=== PATIENT | male | born 1960 | race African-American/Black ===

== ENCOUNTER 2017-05-31 19:42 | Inpatient (IN) | payer OTHER ==
[2017-05-31 20:09] LABS: #Basophils 0.1 thou/uL (0.0-0.2); #Eosinphils 0.5 thou/uL (0.0-0.7); #Lymphocytes 2.8 thou/uL (1.20-3.40); #Monocytes 0.6 thou/uL (0.11-0.59); #Neutrophils 5.7 thou/uL (1.40-6.50); %Basophils 0.9 % (0.0-1.0); %Eosinophils 4.8 % (0.0-10.0); %Lymphocytes 29.1 % (21.0-51.0); Hematocrit 45.7 % (42.0-52.0); Mean Platelet Volume 7.9 fL (7.4-10.4); Red Blood Cell (RBC) Count 5.43 mill/uL (4.70-6.10); White Blood Cell (WBC) Count 9.6 thou/uL (4.8-10.8)
[2017-05-31 20:16] LABS: Prothrombin Time 12.3 SEC (12.0-14.7)
[2017-05-31 20:32] LABS: Anion Gap 13 mmol/L (10-20); BUN (Urea Nitrogen) 23 mg/dL (8.4-25.7); CK (CPK) 321 U/L (30-200); Calc. Creatinine Clearance 0 mL/min (70-130); Calcium 9.5 mg/dL (7.8-10.44); Carbon Dioxide 28 mmol/L (22-29); Chloride 103 mmol/L (98-107); Estimated GFR-MDRD 75
[2017-05-31 20:35] LABS: Troponin I Less than 0.010 ng/mL (< 0.028)
--- NOTE | 2017-05-31 21:06 | CT ---
CT HEAD NONCONTRAST 05/31/17 HISTORY: Altered mental status. Prior intracranial hemorrhage. COMPARISON: 04/21/16. FINDINGS: No centered within the right basal ganglia is an oval fairly well circumscribed 1.2 cm hyperdense foc us. A tiny hyperdense focus is noted just to the right of midline at the level of the gini. The hemat kimo at the left occipital level on the previous exam has resolved. Prominent chronic ischemic small v essel disease is again demonstrated throughout each cerebral hemisphere. There is mucosal thickening within the paranasal sinuses. IMPRESSION: New dominant focus of intra-axial hematoma at the right basal ganglia, measuring up to 1.2 cm greates t diameter. A tiny hemorrhagic focus is also suspected within the right side of the gini. Findings were called to Dr. Montiel in the Emergency Department at 2051 hours. Code CR POS: [facility]
[2017-05-31] MEDS ORDERED: niCARdipine 20MG In NaCl 20 MG/200 ML BAG ONE (21:27)
[2017-05-31] MEDS ORDERED: Docusate 100 MG CAP PO PRN (22:29)
[2017-05-31] MEDS ORDERED: Ondansetron HCl/PF 4 MG/2 ML Vial IVP PRN (22:29)
[2017-05-31] MEDS ORDERED: Acetaminophen 325 MG TAB PO PRN (22:29)
[2017-05-31] MEDS ORDERED: Mag-Al 1200 mg/1200 mg/30 ML UDCUP PO PRN (22:29)
[2017-05-31] MEDS ORDERED: Bisacodyl 10 MG SUPP PR PRN (22:29)
[2017-05-31] MEDS ORDERED: niCARdipine 20MG in NaCl 200 ML BAG IVPB PRN (22:29)
[2017-05-31] MEDS: Sodium Chloride 0.9% 1,000 ML IV SCH (23:45)
[2017-06-01 00:40] VITALS: BMI 31.6
[2017-06-01] MEDS: niCARdipine HCl 25 MG in Sodium Chloride 0.9% 250 ML 240 ML IVPB PRN ×3 (01:23→15:11)
[2017-06-01 04:09] LABS: #Basophils 0.1 thou/uL (0.0-0.2); #Eosinphils 0.4 thou/uL (0.0-0.7); #Lymphocytes 2.1 thou/uL (1.20-3.40); #Monocytes 0.6 thou/uL (0.11-0.59); #Neutrophils 4.8 thou/uL (1.40-6.50); %Eosinophils 5.6 % (0.0-10.0); %Lymphocytes 26.3 % (21.0-51.0); %Monocytes 7.1 % (0.0-10.0); Hematocrit 43.7 % (42.0-52.0); Mean Platelet Volume 7.6 fL (7.4-10.4)
[2017-06-01 04:20] LABS: Anion Gap 10 mmol/L (10-20); BUN (Urea Nitrogen) 15 mg/dL (8.4-25.7); Calc. Creatinine Clearance 99 mL/min (70-130); Calcium 8.9 mg/dL (7.8-10.44); Carbon Dioxide 29 mmol/L (22-29); Chloride 103 mmol/L (98-107); Estimated GFR-MDRD Greater than 90
[2017-06-01] MEDS ORDERED: Potassium Phosphate 15 MMOL in Sodium Chloride 0.9% 250 ML 250 ML IV PRN (04:54)
[2017-06-01] MEDS ORDERED: Magnesium 2 GM/NS 0.9% 100 ML 2 GM in Premix Bag 1 BAG IVPB PRN (04:54)
[2017-06-01] MEDS ORDERED: Potassium Chloride 40 MEQ in Premix Bag 1 BAG IVPB PRN (04:54)
[2017-06-01] MEDS ORDERED: Potassium Phosphate 12 MMOL in Sodium Chloride 0.9% 250 ML 250 ML IV PRN (04:54)
[2017-06-01] MEDS ORDERED: Potassium Chloride 20 MEQ TAB PO PRN (04:54)
[2017-06-01] MEDS ORDERED: CCU ELECTROLYTE REPLACEMENT PROTOCOL FS PRN (04:54)
[2017-06-01] MEDS ORDERED: Potassium Chloride 40 MEQ in Sodium Chloride 0.9% 250 ML 250 ML IVPB PRN (04:54)
[2017-06-01] MEDS ORDERED: Potassium Phosphate 9 MMOL in Sodium Chloride 0.9% 100 ML IVPB PRN (04:54)
[2017-06-01] MEDS ORDERED: Magnesium Oxide 400 MG TAB PO PRN ×2 (04:54)
--- NOTE | 2017-06-01 05:44 | HP ---
Noel Rodriguez PA-C, dictating for Ron Perez MD This is a 55-minute initial patient consult in which greater than 50% of the exam was spent in counseling and coordinating patient's care. The remainder of the exam was spent in review of patient's medical records and appropriate imaging studies. CHIEF COMPLAINT: Slurred speech for the past 3 hours. HISTORY OF PRESENT ILLNESS: Mr. Singer is a pleasant 57-year-old male who presented to [facility] with his girlfriend with the above complaints. Apparently, the patient's girlfriend was visiting [place] and was speaking to the patient on the phone roughly at 5:00 p.m. When she got home around 8:00 p.m., she noticed that the patient was slurring his speech and this became progressively worse over the course of roughly an hour and he did have one episode of drooling. The patient has known hypertension that is intermittently controlled. He is also on 81 mg of aspirin, but does not have a history of CVA. The patient currently denies headache, blurred vision, nausea, vomiting, or falls. He does note some decreased function of the left upper extremity and slurred speech. He does have a history of amyloid angiography. Due to the slurred speech, a CT scan was obtained in the ER and review of this shows right basal ganglia hemorrhage with pontine hemorrhage. PHYSICAL EXAMINATION: The patient is awake, alert, and appropriate. He does have some garbled speech and talks as though he has marbles in his mouth. He is slightly slurring his words, but answers all our questions appropriately. GCS is currently 15. He is able to follow commands in all 4 extremities. He has full strength in the right upper extremity and bilateral lower extremities, but does have some mild weakness in the entire left upper extremity. He is also slower to move this. There does appear to be a slight component of left pronator drift though this is subtle. His pupils are equal, round, and reactive bilaterally. He is able to appropriately identify a writing pen and identify its purpose but he does have difficulty defining the definition of an island. He also has difficulty with index [id number] touch on the left. IMPRESSION: 1. Right basal ganglia and pontine hemorrhage. 2. History of hypertension, poorly controlled. 3. Amyloid angiography. PLAN: I have discussed the patient's case with Dr. Perez, reviewed the imaging. At this time, we will admit the patient to the CCU for close monitoring. He will have q. 1 hour neuro checks. He will be n.p.o. We also consult our medical colleagues to help with our patient's medical issue. His systolic blood pressure should remain less than 150. We will elevate his head of bed to 30 and keep him on bed rest. We will repeat his head CT in the morning. It is highly unlikely that the patient will require any type of neurosurgical intervention and we will be able to monitor this hemorrhage. I discussed this in detail with the patient and his girlfriend at bedside and they are agreeable to this. We will follow upon the patient's head CT in the morning, but please do not hesitate to contact us with any changes or questions in patient's neurologic exam. DARIO
[2017-06-01] MEDS ORDERED: CCU Electrolyte Replacement 1 EACH FS ONE (07:26)
--- NOTE | 2017-06-01 08:03 | CT ---
PRELIMINARY REPORT/[facility]/EMERGENCY AFTER HOURS PROCEDURE: EXAM: CT Head Without Intravenous Contrast CLINICAL HISTORY: 57 years old, male; Condition or disease; Other: Intracerebral hemorrhage; Patient HX: Intracerebral hemorrhage, f/u TECHNIQUE: Axial computed tomography images of the head/brain without intravenous contrast. COMPARISON: CT Brain WO Con 2017-05-31 20:46 FINDINGS: Brain: Mild moderate periventricular and deep white matter hypodensities compatible with chronic microvascular ischemic change. Approximately 1 cm hyperdensity in the upper right basal gangliacorona radiata, unchanged. No new hemorrhage. Ventricles: Normal. Bones/joints: Unremarkable. No acute fracture. Soft tissues: Normal. Sinuses: Minimal paranasal sinus mucosal thickening, more prominent in the right maxillary sinus. Mastoid air cells: Unremarkable. No mastoid effusion. IMPRESSION: Unchanged parenchymal hematoma. Thank you for allowing us to participate in the care of your patient. Dictated and Authenticated by: Stone Hernadez MD 06/01/2017 4:36 AM Central Time ([place] & [place]) FINAL REPORT HEAD CT WITHOUT CONTRAST: DATE: 06/01/17. COMPARISON: 05/31/17 and 04/20/16. HISTORY: Reevaluate intracranial hemorrhage. FINDINGS: I agree with the preliminary [facility] report. There is a stable intraaxial hemorrhage within the putame n on the right measuring approximately 1 cm. There is mild surrounding edema, unchanged. There is a punctate hyperdensity in the gini, unchanged since 2016, likely on the basis of a small ca lcification. Periventricular hypodensity is again noted suggesting small-vessel disease. No midline shift or mass effect. No new hemorrhage. There is mucosal thickening of the right maxillary sinus. IMPRESSION: Stable intracranial hemorrhage as detailed above. POS: [facility]
[2017-06-01] MEDS ORDERED: Amlodipine 5 mg/Benazepril 10 mg CAP PO SCH (10:30)
[2017-06-01] MEDS ORDERED: Hydrochlorothiazide 25 MG TAB PO SCH (10:30)
--- NOTE | 2017-06-01 13:28 | PRG ---
DATE OF SERVICE: 06/01/2017 This is a 30 minute initial hospital visit note in which 30 minutes were spent in review of the imagi ng, record, evaluation and examination of the patient. Greater than 50% of time was spent in corporate counsel ing on Deric Singer. CHIEF COMPLAINT: Right basal ganglia and pontine hemorrhage with a history of amyloid angiopathy. HISTORY OF PRESENT ILLNESS: I reviewed the notes of my colleague Noel Rodriguez PA-C, and agree wit h its content. Mr. Singer is a 57-year-old man known to me. I saw him last year for left occipital h emorrhage. MRI demonstrated findings consistent with amyloid angiopathy. He has at times had uncont rolled hypertension and as such, he presented yesterday to the ER with left-sided upper extremity wea kness and was found to have a right basal ganglia hemorrhage and a pontine hemorrhage with a blood pr essure of 180/90. This morning on exam, he is alert, appropriate. He has mild weakness in the left upper extremity, but otherwise follows commands. IMPRESSION AND PLAN: I let the patient know that there is no role for neurosurgical intervention. R epeat head CT has been stable. We will transfer to our medical colleagues and arrange for a followup head CT in our clinic in 1 month. I have emphasized to the patient and the importance of tight bloo d pressure control would recommend systolic blood pressure control below 150.
[2017-06-01] MEDS: Sodium Chloride 0.9% 1,000 ML IV SCH (15:11)
--- NOTE | 2017-06-01 15:48 | PDOC.PN ---
- Subjective Encounter Start Date: 06/01/17 Encounter Start Time: 09:40 Pt seen for management of medical comorbidities, including hypertension. Denies chest pain, shortness of breath, fevers or chills. - Objective MAR Reviewed: Yes Vital Signs & Weight: Vital Signs (12 hours) Temp Pulse Pulse Pulse Resp BP BP 06/01/17 12:00 98.3 F 06/01/17 10:20 60 58 L 131/86 139/87 06/01/17 07:18 98.0 F 67 23 H 06/01/17 07:00 98.0 F 06/01/17 04:00 98.5 F Pulse Ox Pulse Ox Pulse Ox 06/01/17 12:00 06/01/17 10:20 100 97 06/01/17 07:18 97 06/01/17 07:00 06/01/17 04:00 Weight Weight 190 lb 0.615 oz Most Recent Monitor Data Heart Rate from ECG 62 NIBP 147/84 NIBP BP-Mean 109 Respiration from ECG 15 SpO2 97 I&O: 05/31/17 06/01/17 06/02/17 06:59 06:59 06:59 Intake Total 661 1090 Output Total 875 760 Balance -214 330 Result Diagrams: 06/01/17 03:53 06/01/17 12:23 EKG Reviewed by me: Yes (Tele: NSR) Phys Exam - Physical Examination Obese HEENT: moist MMs, sclera anicteric Neck: supple Respiratory: clear to auscultation bilateral Cardiovascular: RRR Gastrointestinal: soft, non-tender, positive bowel sounds Neurological: non-focal, moves all 4 limbs Psychiatric: normal affect Skin: no rash Dx/Plan (1) HTN (hypertension) Code(s): I10 - ESSENTIAL (PRIMARY) HYPERTENSION Status: Chronic (2) Dyslipidemia Code(s): E78.5 - HYPERLIPIDEMIA, UNSPECIFIED Status: Chronic (3) Intracranial hemorrhage Code(s): I62.9 - NONTRAUMATIC INTRACRANIAL HEMORRHAGE, UNSPECIFIED Status: Acute - Plan PT/OT, out of bed/ambulate, DVT proph w/SCDs * . Resume home antihypertensives. Monitor vital signs and titrate antihypertensives. Continue Cardene drip PRN. Resume statin. Neurosurgery following re: intracranial bleed. Review of Systems - Review of Systems Respiratory: negative: Cough, Dry, Shortness of Breath, Hemoptysis, SOB with Excertion, Pleuritic Pain, Sputum, Wheezing Cardiovascular: negative: Chest Pain, Palpitations, Orthopnea, Paroxysmal Noc. Dyspnea, Edema, Light Headedness Neurological: negative: Weakness, Numbness, Incoordination, Change in Speech, Confusion, Seizures - Medications/Allergies Allergies/Adverse Reactions: Allergies Allergy/AdvReac Type Severity Reaction Status Date / Time No Known Allergies Allergy Verified 04/20/16 23:20 Medications: Current Medications Acetaminophen (Tylenol) 650 mg PO Q6H PRN PRN Reason: Fever > 101 or Headache Al Hydroxide/Mg Hydroxide (Maalox) 30 ml PO QIDPRN PRN PRN Reason: Dyspepsia Amlodipine/Benazepril HCl (Lotrel 5/10) 1 cap PO DAILY [facility] Bisacodyl (Dulcolax) 10 mg [place] DAILYPRN PRN PRN Reason: Constipation Docusate Sodium (Colace) 100 mg PO BIDPRN PRN PRN Reason: Constipation Hydrochlorothiazide (Hydrochlorothiazide) 25 mg PO DAILY [facility] Sodium Chloride (Normal Saline 0.9%) 1,000 mls @ 80 mls/hr IV .[id number] [facility] Last Admin: 06/01/17 15:11 Dose: 1,000 mls Nicardipine HCl 25 mg/ Sodium (Chloride) 250 mls @ 0 mls/hr IVPB INF PRN; Protocol; Titrate PRN Reason: For SBP > 150 or DBP > 90 Last Admin: 06/01/17 15:11 Dose: 250 mls Potassium Chloride 40 meq/ (Sodium Chloride) 270 mls @ 135 mls/hr IVPB ASDIR PRN PRN Reason: FOR SERUM K+ 2.5 - 3.5 Last Admin: 06/01/17 05:14 Dose: 270 mls Potassium Chloride 40 meq/ (Device) 100 mls @ 50 mls/hr IVPB ASDIR PRN PRN Reason: FOR SERUM K+ 2.5 - 3.5 Magnesium Sulfate 1 gm/ Sodium (Chloride) 102 mls @ 102 mls/hr IV PRN PRN PRN Reason: MAG LEVEL 1.4 - 2.0 Magnesium Sulfate 2 gm/ Device 100 mls @ 100 mls/hr IVPB ASDIR PRN PRN Reason: MAGNESIUM < 1.4 Potassium Phosphate 9 mmol/ (Sodium Chloride) 103 mls @ 25.75 mls/hr IVPB ASDIR PRN PRN Reason: Phosphate 1.0-1.8 Potassium Phosphate 12 mmol/ (Sodium Chloride) 254 mls @ 63.5 mls/hr IV ASDIR PRN PRN Reason: Serum phosphate 0.5-0.9 Potassium Phosphate 15 mmol/ (Sodium Chloride) 255 mls @ 63.75 mls/hr IV ASDIR PRN PRN Reason: Serum Phos < 0.5 Influenza Virus Vaccine (Fluzone Quad [id number] Syringe) 0.5 ml IM .ONCE ONE Stop: 06/03/17 09:01 Magnesium Oxide (Magnesium Oxide) 400 mg PO BIDPRN PRN PRN Reason: FOR SERUM MAG 1.4 - 2.0 Magnesium Oxide (Magnesium Oxide) 800 mg PO PRN PRN PRN Reason: FOR SERUM MAG < 1.4 Metoprolol Tartrate (Lopressor) 25 mg PO BID [facility] Miscellaneous Medication (Phos-Nak) 1 pkt PO TIDPRN PRN PRN Reason: FOR PHOS LEVEL 1.0 - 1.8 Miscellaneous Medication (Phos-Nak) 2 pkt PO TIDPRN PRN PRN Reason: FOR PHOS LEVEL 0.5 - 1.0 Ondansetron HCl (Zofran) 4 mg IVP BIDPRN PRN PRN Reason: Nausea/Vomiting Potassium Chloride (K-Dur) 40 meq PO ASDIR PRN PRN Reason: FOR SERUM K+ 2.5 - 3.5 Potassium Chloride (Klor-Con) 40 meq PER TUBE ASDIR PRN PRN Reason: FOR SERUM K+ 2.5-3.5 Last Admin: 06/01/17 13:08 Dose: 40 meq Sodium Chloride (Flush - Normal Saline) 10 ml IVF PRN PRN PRN Reason: Saline Flush
[2017-06-01] MEDS: hydrALAZINE 20 MG/ML VIAL SLOW IVP PRN ×2 (17:05→19:16)
--- NOTE | 2017-06-01 18:35 | CON ---
DATE OF SERVICE: 06/01/2017 SERVICE: Pulmonary Medicine. REASON FOR CONSULTATION: ICU patient. HISTORY OF PRESENT ILLNESS: The patient is a 57-year-old -[place] male with past medical his tory significant for hypertension. He presented to the hospital after he was in his usual state of h ealth and had an abrupt onset of neurologic changes including left arm weakness, lack of coordination , and inability to get his words out. He could understand everything that people were saying. On pr esentation to the Emergency Department, he had a CT of the brain, demonstrated acute hemorrhagic blee d of the right thalamic region. Otherwise, he was in his usual state of health. He currently denies any fevers, chills, nausea, vomiting or chest discomfort. PAST MEDICAL HISTORY: 1. Hypertension. 2. Dyslipidemia. 3. History of intracranial hemorrhage secondary to elevated blood pressures in the left parietal-occ ipital region. PAST SURGICAL HISTORY: None. SOCIAL HISTORY: He drinks alcohol socially, but denies any alcohol or illicit drugs. He has no expo sure to chemicals, dust, asbestos or tuberculosis. FAMILY HISTORY: Noncontributory. ALLERGIES: No known drug allergies. MEDICATIONS: List of inpatient medications was reviewed. A couple of small updates were made. REVIEW OF SYSTEMS: General, head, ears, eyes, nose, throat, cardiovascular, respiratory, GI, , mus culoskeletal, neurologic and skin is negative except as mentioned in the HPI. PHYSICAL EXAMINATION: VITAL SIGNS: Afebrile, pulse 62, blood pressure 147/84, respirations 18, saturation 100% on room air . GENERAL: The patient is awake and alert, in no apparent distress. LUNGS: Excellent air entry. There is no prolonged expiratory phase, wheezing, rhonchi or crackles. HEART: Normal rate and regular. ABDOMEN: Soft, nontender, nondistended, bowel sounds positive. MUSCULOSKELETAL: No cyanosis or clubbing. No pitting in the bilateral lower extremities. NEUROLOGIC: He demonstrates left upper extremity weakness. LABORATORY DATA: WBC and rest of CBC is unremarkable. INR 0.9. Potassium 2.9, which has improved t o 3.2. Basic metabolic profile is otherwise unremarkable. Cardiac enzymes negative x1. IMAGING: CT of the brain from this morning demonstrates unchanged parenchymal hematoma in the right basal ganglia region. ASSESSMENT: 1. Intraparenchymal hemorrhage of the right thalamic region. 2. Hypertensive emergency. PLAN: We will get physical therapy and occupational therapy involved. If the patient remains hemody namically stable over the next 24 hours, he can be transitioned to the stroke unit. Pulmonary Critic al Care will continue to follow while he remains in this location.
[2017-06-01] MEDS: Pravastatin Sodium 40 MG TAB PO SCH (20:30)
[2017-06-01] MEDS: Amlodipine 5 mg/Benazepril 10 mg CAP PO SCH (20:30)
[2017-06-01] MEDS: Metoprolol Tartrate 25 MG TAB PO SCH (20:30)
[2017-06-02] MEDS: Sodium Chloride 0.9% 1,000 ML IV SCH ×2 (00:43→01:21)
[2017-06-02 04:18] LABS: #Basophils 0.1 thou/uL (0.0-0.2); #Eosinphils 0.5 thou/uL (0.0-0.7); #Lymphocytes 1.9 thou/uL (1.20-3.40); #Monocytes 0.5 thou/uL (0.11-0.59); %Basophils 0.9 % (0.0-1.0); %Eosinophils 5.1 % (0.0-10.0); %Lymphocytes 21.3 % (21.0-51.0); %Monocytes 5.4 % (0.0-10.0); Hematocrit 45.1 % (42.0-52.0); Red Blood Cell (RBC) Count 5.35 mill/uL (4.70-6.10); White Blood Cell (WBC) Count 8.9 thou/uL (4.8-10.8)
[2017-06-02 04:30] LABS: Anion Gap 8 mmol/L (10-20); BUN (Urea Nitrogen) 12 mg/dL (8.4-25.7); Calc. Creatinine Clearance 106 mL/min (70-130); Carbon Dioxide 26 mmol/L (22-29); Chloride 105 mmol/L (98-107); Estimated GFR-MDRD Greater than 90
[2017-06-02] MEDS: hydrALAZINE 20 MG/ML VIAL SLOW IVP PRN ×2 (05:03→18:25)
[2017-06-02] MEDS: Hydrochlorothiazide 25 MG TAB PO SCH (08:15)
[2017-06-02] MEDS: Metoprolol Tartrate 25 MG TAB PO SCH ×2 (08:15→21:13)
[2017-06-02] MEDS: Amlodipine 5 mg/Benazepril 10 mg CAP PO SCH ×2 (08:15→21:13)
[2017-06-02] MEDS ORDERED: Potassium Chloride 20 MEQ TAB PO SCH (08:30)
[2017-06-02 08:37] LABS: Phosphorus 2.4 mg/dL (2.3-4.7)
--- NOTE | 2017-06-02 08:43 | PRG ---
DATE OF SERVICE: 06/02/2017 SERVICE: Pulmonary Medicine INTERVAL HISTORY: The patient weaned off of blood pressure medication yesterday. He is tolerating p .o. We have excellent control of his blood pressures. He is getting up into a chair and tolerating p.o. At this point, he has no further requirements to be monitored in the ICU. There were no events overnight. PHYSICAL EXAMINATION: VITAL SIGNS: Afebrile, pulse 60, blood pressure 125/73, respirations 17, saturation 97% on room air. GENERAL: The patient is awake, alert, in no apparent distress. LUNGS: Decent air entry. There is no prolonged expiratory phase, wheezing, rhonchi or crackles. HEART: Normal rate, regular. ABDOMEN: Soft, nontender, nondistended. Bowel sounds positive. MUSCULOSKELETAL: No cyanosis or clubbing. No pitting in the bilateral lower extremities. NEUROLOGIC: The patient has a left hand weakness. He has got a little difficulty with getting words out. Outside of that, he has no focal neurologic deficits. LABORATORY: CBC is completely unremarkable. Basic metabolic profile is only significant for potassi um of 3.3. ASSESSMENT: 1. Intraparenchymal hemorrhage of the right thalamic area. 2. Hypertensive emergency, resolved. 3. Hyperkalemia. PLAN: I will replace the patient's potassium. At this point, he is off of the drips. We will zeb nue his p.o. blood pressure medication and other supportive measures. He is going to work hard with physical therapy, occupational therapy, and Speech Pathology in order to regain loss strength. At th is point, there are no further requirements for ICU monitoring. We will transition him to the stroke unit if he remains stable there, Pulmonary will sign off. Please call with additional questions or concerns.
[2017-06-02] MEDS ORDERED: Amlodipine 5 mg/Benazepril 10 mg CAP PO SCH (09:00)
[2017-06-02] MEDS ORDERED: DC Electrolyte Protocol FS ONE (10:04)
--- NOTE | 2017-06-02 16:59 | PDOC.PN ---
- Subjective Encounter Start Date: 06/02/17 Encounter Start Time: 10:00 Patient seen and examined. No new complaints. No overnight events. Doing well. No headache. Speech slowly improving. No new focal deficits. - Objective MAR Reviewed: Yes Vital Signs & Weight: Vital Signs (12 hours) Temp Pulse Pulse Pulse Resp BP BP 06/02/17 16:45 98.5 F 06/02/17 15:54 98.6 F 06/02/17 12:00 98.6 F 06/02/17 11:00 98.4 F 06/02/17 09:25 62 59 L 125/83 132/86 06/02/17 07:44 98.5 F 60 17 06/02/17 07:00 98.6 F 06/02/17 05:03 70 Pulse Ox 06/02/17 16:45 06/02/17 15:54 06/02/17 12:00 06/02/17 11:00 06/02/17 09:25 06/02/17 07:44 97 06/02/17 07:00 06/02/17 05:03 Weight Weight 188 lb 14.978 oz Most Recent Monitor Data Heart Rate from ECG 68 NIBP 132/70 NIBP BP-Mean 103 Respiration from ECG 20 SpO2 96 I&O: 06/01/17 06/02/17 06/03/17 06:59 06:59 06:59 Intake Total 661 2738 1615 Output Total 875 2625 1340 Balance -214 113 275 Result Diagrams: 06/02/17 03:48 06/03/17 04:27 EKG Reviewed by me: Yes (Tele SR) Phys Exam - Physical Examination Constitutional: NAD Respiratory: no wheezing, no rhonchi Cardiovascular: RRR, no rub Gastrointestinal: soft, non-tender, positive bowel sounds Musculoskeletal: no edema Neurological: moves all 4 limbs no new focal deficits. Psychiatric: normal affect, A&O x 3 Dx/Plan - Plan DVT proph w/SCDs IMPRESSION: 1. Intracranial hemorrhage due to amyloid angiopathy 2. HTN - not at goal - noncompliant with meds at home 3. Obesity BMI 32.6 4. Hyperlipidemia PLAN: * Cont current HTN meds as below * Lotrel dose increased * Will consider changing Metoprolol to Coreg in AM if BP not at goal * Will cont Statins due to insufficient data to hold Statins during ICH from Amyloid angiopathy * Counselled on med compliance * Family at bedside. * All questions answered - Pt stated understanding with the current plan of care Review of Systems - Review of Systems Respiratory: negative: Cough, Dry, Shortness of Breath, Hemoptysis, SOB with Excertion, Pleuritic Pain, Sputum, Wheezing Cardiovascular: negative: Chest Pain, Palpitations, Orthopnea, Paroxysmal Noc. Dyspnea, Edema, Light Headedness, Other Gastrointestinal: negative: Nausea, Vomiting, Abdominal Pain, Diarrhea, Constipation, Melena, Hematochezia, Other - Medications/Allergies Allergies/Adverse Reactions: Allergies Allergy/AdvReac Type Severity Reaction Status Date / Time No Known Allergies Allergy Verified 04/20/16 23:20 Medications: Current Medications Acetaminophen (Tylenol) 650 mg PO Q6H PRN PRN Reason: Fever > 101 or Headache Al Hydroxide/Mg Hydroxide (Maalox) 30 ml PO QIDPRN PRN PRN Reason: Dyspepsia Amlodipine/Benazepril HCl (Lotrel 5/10) 1 cap PO BID [facility] Last Admin: 06/02/17 08:15 Dose: 1 cap Bisacodyl (Dulcolax) 10 mg [place] DAILYPRN PRN PRN Reason: Constipation Docusate Sodium (Colace) 100 mg PO BIDPRN PRN PRN Reason: Constipation Hydralazine HCl (Apresoline) 20 mg SLOW IVP Q1H PRN PRN Reason: sbp > 140 Last Admin: 06/02/17 05:03 Dose: 20 mg Hydrochlorothiazide (Hydrochlorothiazide) 25 mg PO DAILY [facility] Last Admin: 06/02/17 08:15 Dose: 25 mg Influenza Virus Vaccine (Fluzone Quad [id number] Syringe) 0.5 ml IM .ONCE ONE Stop: 06/03/17 09:01 Metoprolol Tartrate (Lopressor) 25 mg PO BID [facility] Last Admin: 06/02/17 08:15 Dose: 25 mg Ondansetron HCl (Zofran) 4 mg IVP BIDPRN PRN PRN Reason: Nausea/Vomiting Pravastatin Sodium (Pravachol) 40 mg PO HS [facility] Last Admin: 06/01/17 20:30 Dose: 40 mg Sodium Chloride (Flush - Normal Saline) 10 ml IVF PRN PRN PRN Reason: Saline Flush
--- NOTE | 2017-06-02 19:09 | PRG ---
DATE OF SERVICE: 05/31/2017 This is a 15 minutes subsequent visit note in which 15 minutes were spent in review of the imaging re cord evaluation, examination of the patient, and formulation of the plan. Greater than 50% of the ti me was spent in counseling on Deric Singer. Mr. Singer is neurologically stable. He is in the ICU. PHYSICAL EXAMINATION: On exam, he is alert, appropriate. He moves all extremities to command with m ild left upper extremity weakness. Again, he has a small right basal ganglia hemorrhage and a small mid-pontine hemorrhage related to amyloid angiopathy. This was known and I saw him a year ago for th e same condition. He has poorly-controlled hypertension and I have again reiterated the importance o f him maintaining this control. At this point, he will be transferred to the floor. I will sign off his case but arrange for followup in my clinic in 1 month. I would recommend systolic blood pressur e be kept ideally below 150. I will turn over his care to our medical team. DIAGNOSES: 1. Amyloid angiopathy. 2. Hypertension.
[2017-06-02] MEDS: Pravastatin Sodium 40 MG TAB PO SCH (21:13)
[2017-06-03 05:54] LABS: Anion Gap 13 mmol/L (10-20); BUN (Urea Nitrogen) 14 mg/dL (8.4-25.7); BUN/Creatinine Ratio 14.74; Calc. Creatinine Clearance 105 mL/min (70-130); Calcium 9.4 mg/dL (7.8-10.44); Carbon Dioxide 25 mmol/L (22-29); Chloride 104 mmol/L (98-107); Estimated GFR-MDRD Greater than 90; Phosphorus 2.9 mg/dL (2.3-4.7)
[2017-06-03] MEDS ORDERED: cloNIDine 0.1 MG TAB PO PRN (06:47)
[2017-06-03] MEDS: Amlodipine 5 mg/Benazepril 10 mg CAP PO SCH ×2 (08:50→20:14)
[2017-06-03] MEDS: Carvedilol 6.25 MG TAB PO SCH ×2 (08:50→15:45)
[2017-06-03] MEDS: Hydrochlorothiazide 25 MG TAB PO SCH (08:51)
[2017-06-03] MEDS ORDERED: FLU VACC QS2017-18 36 mo. & older 0.5 ML SYRINGE IM ONE (09:00)
--- NOTE | 2017-06-03 19:05 | PDOC.PN ---
- Subjective Encounter Start Date: 06/03/17 Encounter Start Time: 08:15 Patient seen and examined. No new complaints. No overnight events. No new focal deficits. Feels better. BP not at goal - Objective MAR Reviewed: Yes Vital Signs & Weight: Vital Signs (12 hours) Temp Pulse Resp BP BP Pulse Ox 06/03/17 15:45 138/86 06/03/17 15:10 98.7 F 67 20 134/84 97 06/03/17 11:35 97.2 F L 60 18 137/78 97 06/03/17 08:50 138/86 06/03/17 07:40 98.7 F 61 20 97 06/03/17 07:37 98.7 F 61 20 138/86 97 Weight Weight 195 lb 11.2 oz Most Recent Monitor Data Heart Rate from ECG 68 NIBP 132/70 NIBP BP-Mean 103 Respiration from ECG 20 SpO2 96 I&O: 06/02/17 06/03/17 06/04/17 06:59 06:59 06:59 Intake Total 2738 1855 1100 Output Total 2625 1340 Balance 994 571 8656 Result Diagrams: 06/02/17 03:48 06/03/17 04:27 EKG Reviewed by me: Yes (Tele SR) Phys Exam - Physical Examination Constitutional: NAD Respiratory: no wheezing, no rhonchi Cardiovascular: RRR, no rub Gastrointestinal: soft, non-tender, positive bowel sounds Musculoskeletal: no edema Neurological: non-focal, moves all 4 limbs Psychiatric: A&O x 3 Dx/Plan - Plan DVT proph w/SCDs IMPRESSION: 1. Intracranial hemorrhage due to amyloid angiopathy 2. HTN - not at goal - noncompliant with meds at home 3. Obesity BMI 32.6 4. Hyperlipidemia PLAN: * Change Metoprolol to Coreg * Cont other HTN meds * Monitor overnight - if BP stable can probably be discharged. * Will cont Statins due to insufficient data to hold Statins during ICH from Amyloid angiopathy * Counselled on med compliance * Family at bedside. Review of Systems - Review of Systems Respiratory: negative: Cough, Dry, Shortness of Breath, Hemoptysis, SOB with Excertion, Pleuritic Pain, Sputum, Wheezing Cardiovascular: negative: Chest Pain, Palpitations, Orthopnea, Paroxysmal Noc. Dyspnea, Edema, Light Headedness - Medications/Allergies Allergies/Adverse Reactions: Allergies Allergy/AdvReac Type Severity Reaction Status Date / Time No Known Allergies Allergy Verified 04/20/16 23:20 Medications: Current Medications Acetaminophen (Tylenol) 650 mg PO Q6H PRN PRN Reason: Fever > 101 or Headache Al Hydroxide/Mg Hydroxide (Maalox) 30 ml PO QIDPRN PRN PRN Reason: Dyspepsia Amlodipine/Benazepril HCl (Lotrel 5/10) 1 cap PO BID [facility] Last Admin: 06/03/17 08:50 Dose: 1 cap Bisacodyl (Dulcolax) 10 mg ID DAILYPRN PRN PRN Reason: Constipation Carvedilol (Coreg) 12.5 mg PO BID-[facility] Last Admin: 06/03/17 15:45 Dose: 12.5 mg Clonidine (Catapres) 0.1 mg PO Q4H PRN PRN Reason: Systolic BP > 160/ DBP >100 Docusate Sodium (Colace) 100 mg PO BIDPRN PRN PRN Reason: Constipation Hydralazine HCl (Apresoline) 20 mg SLOW IVP Q1H PRN PRN Reason: sbp > 140 Last Admin: 06/02/17 18:25 Dose: 20 mg Hydrochlorothiazide (Hydrochlorothiazide) 25 mg PO DAILY [facility] Last Admin: 06/03/17 08:51 Dose: 25 mg Ondansetron HCl (Zofran) 4 mg IVP BIDPRN PRN PRN Reason: Nausea/Vomiting Pravastatin Sodium (Pravachol) [address] [facility] Last Admin: 06/02/17 21:13 Dose: 40 mg Sodium Chloride (Flush - Normal Saline) 10 ml IVF PRN PRN PRN Reason: Saline Flush
[2017-06-03] MEDS: Pravastatin Sodium 40 MG TAB PO SCH (20:14)
[2017-06-04] MEDS ORDERED: Loperamide HCl 2 MG CAP PO PRN (08:25)
[2017-06-04] MEDS ORDERED: Zolpidem Tartrate 5 MG TAB PO PRN (08:25)
[2017-06-04] MEDS ORDERED: Loratadine 10 MG TAB PO PRN (08:25)
[2017-06-04] MEDS ORDERED: Diabetic Tussin 200 MG/10 ML UDCUP PO PRN (08:25)
[2017-06-04] MEDS ORDERED: Ondansetron ODT 4 MG TAB PO PRN (08:25)
[2017-06-04] MEDS ORDERED: Eucerin (Mineral Oil/Petrolatum,White) 30 gm Jar TOP PRN (08:25)
[2017-06-04] MEDS ORDERED: Chloraseptic Spray 180 ml Bottle PO PRN (08:25)
[2017-06-04] MEDS ORDERED: Sodium Chloride 0.65% Nasal 44 ML BOT EA NARE PRN (08:25)
[2017-06-04] MEDS: Carvedilol 6.25 MG TAB PO SCH (09:31)
[2017-06-04] MEDS: Amlodipine 5 mg/Benazepril 10 mg CAP PO SCH (09:31)
[2017-06-04] MEDS: Hydrochlorothiazide 25 MG TAB PO SCH (09:32)
--- NOTE | 2017-06-04 10:34 | DIS ---
DATE OF ADMISSION: 05/31/2017 DATE OF DISCHARGE: 06/04/2017 PRIMARY CARE PHYSICIAN: Dr. Guerrero Caceres. DISCHARGE DISPOSITION: Home. PRIMARY DISCHARGE DIAGNOSES: 1. Right basilar hemorrhage. 2. Amyloid angiopathy. 3. Hypokalemia, corrected. SECONDARY DISCHARGE DIAGNOSES: Obesity with BMI 32, hypertension, dyslipidemia. PRIMARY PROCEDURE/OPERATION: None. RADIOLOGICAL INVESTIGATION: CT brain on admission showed intraaxial hematoma in the right basil gang ace. Repeat CT brain on next day, which showed stable finding without any worsening. SIGNIFICANT LABS: WBC 8.9, hemoglobin 15.0, platelets 242. INR 0.9. Sodium 138, potassium 3.6, BUN 14, creatinine 0.95, calcium 9.4, phosphorus 2.9, magnesium 2.0. Cardiac enzymes negative. Albumin 3.9. DISCHARGE MEDICATIONS: Lotrel 5/10 one capsule p.o. daily, Coreg 12.5 mg p.o. b.i.d., hydrochlorothi azide 25 mg p.o. daily, pravastatin 40 mg p.o. at bedtime. CONTRAINDICATIONS: None. CODE STATUS: FULL CODE. INPATIENT CONSULTANTS: Dr. Perez was following while in hospital. [facility] team was primary. TEST RESULTS PENDING ON DISCHARGE: None. ALLERGIES: No known drug allergy. DISCHARGE PLAN: Post hospital, the patient will follow up with Dr. Guerrero Caceres in 1 week. The patient will follow up with neurosurgeon as instructed. HOSPITAL COURSE: A 57-year-old male who was admitted by Dr. Stoddard. Please see his H&P for further d etails. This patient was initially admitted by Dr. Perez and they admitted under their service as a primary team and subsequently primary team was changed to [facility] upon stabilization. Patient wa s diagnosed with a right basal ganglia hemorrhage and the patient was admitted in CCU. He was monito red for 24 hours in CCU. This patient has underlying history of amyloid angiopathy and that might ocampo ve contributed to his current hemorrhage from uncontrolled hypertension. [facility] was consulted in itially for medical management, but subsequently [facility] was primary for this particular patient a nd neurosurgeon will sign off on this particular patient upon stabilization and repeat CT brain showe d no new finding and that is why he was transferred out of ICU to the stroke floor where we monitored for another couple of days for blood pressure medication adjustment. While in the hospital, he had hypokalemia that was corrected. Patient is doing very well with physical therapy. He is walking almost 400 feet without any problem and even more he is completely normal. I reviewed his entire chart. Patient is currently doing very well. His blood pressure is well contr olled. REVIEW OF SYSTEMS: Reviewed with him and negative. PHYSICAL EXAMINATION: VITAL SIGNS: Currently, temperature 98.3, pulse 56, respiratory rate 16, saturation 96%, blood press ure 127/84. Weight 193 pounds. GENERAL: The patient is currently alert, awake, no acute distress. HEAD: Normocephalic, atraumatic. LUNGS: Clear to auscultation without any rhonchi or rales. CARDIAC: S1, S2 regular without any murmur. ABDOMEN: Soft and benign without any tenderness. EXTREMITIES: No edema. NEUROLOGIC: The patient is alert and oriented x3. Cranial nerves II-XII intact. Motor and sensatio n within normal limits. Reflexes symmetrical. Patient is doing very well. All new medication prescriptions sent to his pharmacy and today we are kenyatta paris to discharge him home. Total time spent on discharge day more than 30 midnights.
[2017-06-04 15:38] VITALS: BP 147/89; TEMP 98.7
== END 2017-06-04 16:06 | disposition home or self-care (01) | DRG 545 ==
LOC: ERS 19:42 → CCU 22:29 → 2SE 06-02 17:13
PROVIDERS: ADMIT Internal Medicine; ATTEND Internal Medicine
DX: E85.4 Organ-limited amyloidosis (principal); I61.9 Nontraumatic intracerebral hemorrhage, unspecified; I16.1 Hypertensive emergency; I10 Essential (primary) hypertension; I68.0 Cerebral amyloid angiopathy; E87.6 Hypokalemia; E66.9 Obesity, unspecified; Z68.32 Body mass index [BMI] 32.0-32.9, adult; E78.5 Hyperlipidemia, unspecified
CPT/HCPCS: 36415; 36416; 70450; 80048; 80069; 82553; 83735; 84100; 84484; 85025; 85610; 85730; 86850; 86900; 86901; 93005; G8978-GP-CJ; G8979-GP-CJ; G8980-GP-CJ; G8987-GO-CJ; G8988-GO-CH; G8996-GN-CH; G8997-GN-CH; J0360; J3480; J7050

== ENCOUNTER 2017-06-21 13:41 | Outpatient (CLI) | payer OTHER ==
--- NOTE | 2017-06-21 14:52 | CT ---
CT OF THE BRAIN WITHOUT IV CONTRAST 06/21/17 INDICATION: Followup intracerebral hemorrhage. COMPARISON: Prior exam dated 06/01/17 and a prior dated 05/31/17. FINDINGS: Previously seen intra-axial hemorrhage involving the right putamen has evolved since the comparison e xamination. The lesion is predominantly hypodense but not as hypodense as the adjacent CSF. There is some mild retained suspected petechial hemorrhage seen along the margin of the lacunar infarct on haily ge 18 of series 2. No new intracranial hemorrhage is evident. Chronic small vessel white matter ische ryley change is similar appearing. Skull and extracranial soft tissues are unremarkable. IMPRESSION: 1. Evolution of the right intraparenchymal hemorrhage involving the right putamen with likely so me residual surrounding petechial hemorrhage seen near the anterior margins of the lacunar infarct. 2. Stable chronic small vessel white matter ischemic change. POS: GARETH
== END 2017-06-21 13:42 | disposition home or self-care (01) ==
LOC: TBSIIMAG 13:41
PROVIDERS: ATTEND Surgery
DX: I61.9 Nontraumatic intracerebral hemorrhage, unspecified (principal)
CPT/HCPCS: 70450